=== PATIENT | female | born 1995 | race Two or more races ===

== ENCOUNTER 2024-05-30 13:42 | Emergency (ER) | payer SELFPAY ==
[~2024-05-30] VITALS: Ht 162.6 cm; Wt 63.0 kg
[2024-05-30 16:08] LABS: BASOPHILS % 0.3 % (0.0-2.0); EOSINOPHILS % 0.3 % (0.0-5.0); HEMATOCRIT. 36.5 % (36.0-48.0); HEMOGLOBIN. 11.7 g/dL (12.0-16.0); LYMPHOCYTES % 19.7 % (20.0-50.0); MEAN CORPUSCULAR HEMOGLOBIN 29.1 pg (28.0-32.0); MEAN CORPUSCULAR HGB CONC 32.1 g/dL (31.0-37.0); MEAN CORPUSCULAR VOLUME 90.7 fL (81.0-99.0); MEAN PLATELET VOLUME 7.2 fl (7.4-10.4); MONOCYTES % 8.3 % (2.0-8.0); NEUTROPHILS % 71.4 % (40.0-76.0); PLATELET 375 x1000/uL (130-400); RED BLOOD CELL COUNT 4.02 mill/uL (4.2-5.4); RED CELL DISTRIBUTION WIDTH 13.9 % (11.6-14.6); WHITE BLOOD COUNT 10.6 x1000/uL (4.5-11.0)
[2024-05-30 16:20] LABS: CARBON DIOXIDE 26 mEq/L (21-32); CHLORIDE 110 mEq/L (98-107); POTASSIUM 4.4 mEq/L (3.5-5.1); SODIUM 141 mEq/L (136-145)
[2024-05-30 16:21] LABS: CALCIUM 8.9 mg/dL (8.7-10.4)
[2024-05-30 16:25] LABS: CREATININE 0.9 mg/dL (0.6-1.0); GLUCOSE 72 mg/dL (70-105)
[2024-05-30 16:26] LABS: ETHANOL BLOOD < 10 mg/dL (<10); UREA NITROGEN BLOOD 7 mg/dL (9-23)
[2024-05-30] MEDS: ZIPRASIDONE MESYLATE 20MG/VIAL IM ONE (22:53)
[2024-05-30] MEDS: DIPHENHYDRAMINE 50MG/ML VIAL IM ONE (22:53)
[2024-05-30] MEDS ORDERED: ZIPRASIDONE MESYLATE 20MG/VIAL IM NR (23:15)
[2024-05-30] MEDS: DIPHENHYDRAMINE 50MG/ML VIAL IM NR (23:36)
[2024-05-31] MEDS: LORAZEPAM 2MG/ML INJ IM ONE ×3 (00:33→20:44)
[2024-05-31 09:50] LABS: CLARITY URINE CLEAR (CLEAR); COLOR URINE YELLOW (YELLOW); GLUCOSE URINE NEGATIVE (NEGATIVE); KETONES URINE 3+ (NEGATIVE); LEUKOCYTE ESTERASE URINE NEGATIVE (NEGATIVE); NITRITE URINE NEGATIVE (NEGATIVE); OCCULT BLOOD URINE NEGATIVE (NEGATIVE); PROTEIN URINE NEGATIVE (NEGATIVE); SPECIFIC GRAVITY URINE 1.024 (1.005-1.030); UROBILINOGEN URINE 0.2 E.U./dL (0.2-1.0)
[2024-05-31 10:01] LABS: *AMPHETAMINES SCREEN URINE NEGATIVE (NEGATIVE); *BARBITURATES SCREEN URINE NEGATIVE (NEGATIVE)
[2024-05-31 10:02] LABS: *BENZODIAZEPINES SCREEN URINE PRESUMPTIVE POSITIVE (NEGATIVE); *COCAINE SCREEN URINE NEGATIVE (NEGATIVE); CANNABINOID URINE SCREEN PRESUMPTIVE POSITIVE (NEGATIVE); ECSTASY MDMA SCREEN URINE NEGATIVE (NEGATIVE); METHADONE URINE SCREEN NEGATIVE (NEGATIVE); OPIATES URINE SCREEN NEGATIVE (NEGATIVE); PHENCYCLIDINE URINE SCREEN NEGATIVE (NEGATIVE)
[2024-05-31] MEDS: OLANZAPINE 10 MG/VIAL IM ONE (13:49)
[2024-05-31] MEDS: OLANZAPINE 5MG TABLET ODT PO SCH (15:30)
[2024-05-31] MEDS: HALOPERIDOL LACTATE 5MG/ML VIAL IM STA (19:59)
[2024-05-31] MEDS: DIPHENHYDRAMINE 50MG/ML VIAL IM STA (20:00)
[2024-05-31] MEDS: ZIPRASIDONE MESYLATE 20MG/VIAL IM ONE (22:54)
[2024-06-01] MEDS: QUETIAPINE FUMARATE 50MG TABLET PO SCH (03:41)
[2024-06-01 07:01] VITALS: O2SAT 98
[2024-06-01] MEDS: MIDAZOLAM HCL 2 MG/2 ML VIAL IM ONE (07:01)
[2024-06-01 12:00] VITALS: BP 132/81; PULSE 70; RESP 16; TEMP 98.1
[2024-06-01] MEDS: DIPHENHYDRAMINE 50MG/ML VIAL IM PRN (15:38)
== END 2024-06-01 15:41 ==
LOC: EDBD 13:42 → ER 13:42
DX: F23 Brief psychotic disorder (principal)
CPT/HCPCS: 80305; 80048; 81003; 80320; 85025; 36415; 96372 ×3; 99291; 87426; 81025; J1200 ×2; J2060 ×2; J3486 ×2; J3490; J1630; Z7610; J2250; G0480